=== PATIENT | female | born 1990 | race American Indian/Alaskan Native ===

== ENCOUNTER 2017-09-05 11:05 | Inpatient (IN) | payer OTHER ==
[~2017-09-05 11:05] MED LIST: NACL 0.9% IR ONE; WATER FOR IRRIG STERILE IR ONE
[2017-09-05] MEDS ORDERED: XYLOCAINE 2% INFILTRATI ONE ×2 (11:41→17:27)
[2017-09-05] MEDS ORDERED: ZOFRAN IV PRN (11:41)
[2017-09-05] MEDS ORDERED: MINERAL OIL PO PRN (11:41)
[2017-09-05] MEDS ORDERED: SUBLIMAZE IV PRN (11:41)
[2017-09-05] MEDS ORDERED: ePHEDrine SULFATE IV PRN ×2 (11:41→15:08)
[2017-09-05] MEDS ORDERED: POLYCILLIN/NS 2 GM/100 ML 2 GM/100 ML BAG IV ONE (11:41)
[2017-09-05] MEDS ORDERED: BRETHINE SUB-Q PRN (11:41)
--- NOTE | 2017-09-05 11:49 | History and Physical Report ---
History of Present Illness Date of examination: 09/05/17 Chief complaint: SROM @ 0930, clear fluid History of present illness: EDC Confirmation: 09/04/2017 Past History : 1 Past Medical History: Negative Past Medical History Past Surgical History: Reviewed history and no changes required: ruptured appendix age 9 with appendectomy and subsequent infection Past Medical History Anesthesia Complications: negative Anemia: negative Autoimmune Disorder: negative Bleeding Disorder: negative Blood Transfusions: negative Breast Disease: negative Diabetes: negative Heart Disease: negative Hypertension: negative Hepatitis/Liver Disease: negative Kidney Disease/UTI: negative Neurologic/Epilepsy/Migraines: negative Phlebitis/Varicosities: negative Psychiatric: negative Pulmonary Disease/Asthma: negative Thyroid Disease: negative Hospitalizations: negative 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 of genital herpes: no Partner hx. of genital herpes: no Varicella/Chicken Pox Status: Unknown TB Risk: no Genetic History Congenital Heart Defect: Mom: no Dad: no Sapphire Disease: Mom: no Dad: no Thalassemia Mom: no Dad: no Neural Tube Defect Mom: no Dad: no Down's Syndrome Mom: no Dad: no Twan-Sachs Mom: no Dad: no Sickle Cell Disease/Trait Mom: no Dad: no Hemophilia Mom: no Dad: no Muscular Dystrophy Mom: no Dad: no Cystic Fibrosis Mom: no Dad: no Vicki Chorea Mom: no Dad: no Mental Retardation Mom: no Dad: no Fragile X Mom: no Dad: no Other Genetic/Chromosomal Disorder Mom: no Dad: no Child w/other defect Mom: no Dad: no Enviromental Exposures Xray Exposure: no Medication, drug, or alcohol use since LMP: no Chemical/Other Exposure: no Exposure to Cat Liter: no Hx of Parvovirus (Fifth Disease): no Active Medications (reviewed today): None Current Allergies (reviewed today): No known allergies Past History Past Medical History: other (see HPI) Past Surgical History: other (see HPI) LOADING DOCK HAND History: other (see HPI) Family/Genetic History: other (see HPI) - Obstetrical History Expected Date of Delivery: 09/04/17 Actual Gestation: 40 Week(s) 1 Day(s) : 1 Para: 0 Hx # Term Pregnancies: 0 Number of Pregnancies: 0 Spontaneous Abortions: 0 Induced : 0 Number of Living Children: 0 Medications and Allergies Allergies Allergy/AdvReac Type Severity Reaction Status Date / Time No Known Allergies Allergy Unverified 09/05/17 11:07 Review of Systems All systems: negative - Vital Signs Vital signs: Vital Signs Temp Resp 98.5 F 18 09/05/17 11:23 09/05/17 11:23 Temp Pulse Resp BP Pulse Ox 98.5 F 100 H 18 112/82 09/05/17 11:23 09/05/17 11:27 09/05/17 11:23 09/05/17 11:27 - Physical Exam Breasts: Positive: normal Cardiovascular: Regular rate Lungs: Positive: Clear to auscultation, Normal air movement Abdomen: Positive: normal appearance, soft Genitourinary (Female): Positive: normal external genitalia, normal perenium Vulva: both: normal Vagina: Positive: normal moisture (SROM - clear amniotic fluid) Uterus: Positive: normal size, normal contour Anus/Rectum: Positive: normal perianal skin Extremities: Positive: normal Deep Tendon Reflex Grade: Normal +2 - Obstetrical FHR: auscultation normal Uterine Contraction Monitor Mode: External Cervical Dilatation: 3.5 Uterine Contraction Pattern: Regular Uterine Tone Measurement Phase: Contraction Uterine Contraction Intensity: Mild Results All other labs normal. Assessment and Plan 27y/o @ 40+1 weeks, arrived with c/o SROM @ 0930. GBS +. Admission orders in EMR. Epidural PRN. - Patient Problems (1) 40 weeks gestation of Current Visit: Yes Status: Acute (2) SROM (spontaneous rupture of membranes) Current Visit: Yes Status: Acute (3) GBS (group B Streptococcus carrier), +RV culture, currently Current Visit: Yes Status: Acute
[2017-09-05] MEDS ORDERED: PITOCin/NS 20 UNIT/1000ML DRIP 20 UNITS/1,000 ML BAG IV SCH ×2 (12:00→22:00)
[2017-09-05] MEDS ORDERED: LACTATED RINGERS 1,000 ML IV SCH ×2 (12:00→22:00)
[2017-09-05] MEDS ORDERED: PITOCin/NS 30 UNIT/500ML 30 UNITS/500 ML BAG IV SCH ×2 (12:00)
[2017-09-05 12:54] LABS: Hemoglobin 11.4 gm/dl (10.1-14.3); Mean Corpuscular HGB Conc 35 % (30-34); Mean Corpuscular Hemoglobin 28 pg (28-32); Mean Corpuscular Volume 81 fl (79-97); Platelet Count 264 K/mm3 (140-440); Red Blood Count 4.08 M/mm3 (3.65-5.03); Red Cell Distribution Width 14.6 % (13.2-15.2)
--- NOTE | 2017-09-05 13:58 | Progress Note ---
Assessment and Plan no change in cervix since admission, ctx have spaced out with hydration. Will start pitocin augmentation. Epidural PRN. - Patient Problems (1) 40 weeks gestation of Current Visit: Yes Status: Acute (2) SROM (spontaneous rupture of membranes) Current Visit: Yes Status: Acute (3) GBS (group B Streptococcus carrier), +RV culture, currently Current Visit: Yes Status: Acute Subjective - Subjective Date of service: 09/05/17 Principal diagnosis: IUP @ 40+1; SROM 0930 Interval history: EDC Confirmation: 09/04/2017 Past History : 1 Past Medical History: Negative Past Medical History Past Surgical History: Reviewed history and no changes required: ruptured appendix age 9 with appendectomy and subsequent infection Past Medical History Anesthesia Complications: negative Anemia: negative Autoimmune Disorder: negative Bleeding Disorder: negative Blood Transfusions: negative Breast Disease: negative Diabetes: negative Heart Disease: negative Hypertension: negative Hepatitis/Liver Disease: negative Kidney Disease/UTI: negative Neurologic/Epilepsy/Migraines: negative Phlebitis/Varicosities: negative Psychiatric: negative Pulmonary Disease/Asthma: negative Thyroid Disease: negative Hospitalizations: negative 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 of genital herpes: no Partner hx. of genital herpes: no Varicella/Chicken Pox Status: Unknown TB Risk: no Genetic History Congenital Heart Defect: Mom: no Dad: no Sapphire Disease: Mom: no Dad: no Thalassemia Mom: no Dad: no Neural Tube Defect Mom: no Dad: no Down's Syndrome Mom: no Dad: no Twan-Sachs Mom: no Dad: no Sickle Cell Disease/Trait Mom: no Dad: no Hemophilia Mom: no Dad: no Muscular Dystrophy Mom: no Dad: no Cystic Fibrosis Mom: no Dad: no Vicki Chorea Mom: no Dad: no Mental Retardation Mom: no Dad: no Fragile X Mom: no Dad: no Other Genetic/Chromosomal Disorder Mom: no Dad: no Child w/other defect Mom: no Dad: no Enviromental Exposures Xray Exposure: no Medication, drug, or alcohol use since LMP: no Chemical/Other Exposure: no Exposure to Cat Liter: no Hx of Parvovirus (Fifth Disease): no Active Medications (reviewed today): None Current Allergies (reviewed today): No known allergies Patient reports: loss of fluid, movement normal, contractions, no vaginal bleeding Objective - Vital Signs Vital Signs: Vital Signs - 12hr 09/05/17 09/05/17 09/05/17 11:23 11:27 12:21 Temperature 98.5 F Pulse Rate 100 H 82 Respiratory 18 Rate Blood Pressure 112/82 130/85 O2 Sat by Pulse Oximetry 09/05/17 09/05/17 09/05/17 12:51 12:52 12:56 Temperature Pulse Rate 85 98 H 101 H Respiratory Rate Blood Pressure O2 Sat by Pulse 96 96 97 Oximetry 09/05/17 09/05/17 09/05/17 12:59 13:00 13:01 Temperature 97.8 F Pulse Rate 91 H 83 Respiratory 18 Rate Blood Pressure 128/56 O2 Sat by Pulse 94 96 Oximetry 09/05/17 09/05/17 09/05/17 13:06 13:11 13:16 Temperature Pulse Rate 97 H 82 95 H Respiratory Rate Blood Pressure O2 Sat by Pulse 97 94 94 Oximetry 09/05/17 09/05/17 09/05/17 13:21 13:25 13:26 Temperature Pulse Rate 92 H 86 92 H Respiratory Rate Blood Pressure O2 Sat by Pulse 96 96 94 Oximetry 09/05/17 09/05/17 09/05/17 13:31 13:32 13:36 Temperature Pulse Rate 86 99 H 90 Respiratory Rate Blood Pressure O2 Sat by Pulse 98 96 96 Oximetry 09/05/17 09/05/17 09/05/17 13:38 13:41 13:43 Temperature Pulse Rate 97 H 87 93 H Respiratory Rate Blood Pressure O2 Sat by Pulse 96 97 96 Oximetry 09/05/17 09/05/17 09/05/17 13:46 13:50 13:51 Temperature Pulse Rate 94 H 85 81 Respiratory Rate Blood Pressure O2 Sat by Pulse 94 95 98 Oximetry 09/05/17 13:56 Temperature Pulse Rate 92 H Respiratory Rate Blood Pressure O2 Sat by Pulse 99 Oximetry - Exam Breasts: normal Cardiovascular: Regular rate Lungs: Clear to auscultation, Normal air movement Abdomen: Present: normal appearance, soft Vulva: both: normal Uterus: Present: normal FHR: category 1 Uterine Contraction Monitor Mode: External Cervical Dilatation: 3.5 (vertex) Cervical Effacement Percentage: 80 station: -2 Uterine Contraction Frequency (min): 3-5 Uterine Contraction Duration: 60 Uterine Contraction Pattern: Regular Uterine Tone Measurement Phase: Contraction Uterine Contraction Intensity: Mild Extremities: normal Deep Tendon Reflex Grade: Normal +2 - Labs Labs: Abnormal Labs 09/05/17 12:20 MCHC 35 H Laboratory Results - last 24 hr 09/05/17 09/05/17 12:20 12:20 WBC 10.2 RBC 4.08 Hgb 11.4 Hct 33.0 MCV 81 MCH 28 MCHC 35 H RDW 14.6 Plt Count 264 Blood Type A POSITIVE
[2017-09-05] MEDS ORDERED: NARCAN 2 MG/2 ML IV PRN (15:08)
--- NOTE | 2017-09-05 15:08 | Anesthesia Consultation ---
Anesthesia Consult and Med Hx Date of service: 09/05/17 - Airway Anesthetic Teeth Evaluation: Good ROM Head & Neck: Adequate Mental/Hyoid Distance: Adequate Mallampati Class: Class II Intubation Access Assessment: Good - Pulmonary Exam CTA: Yes - Cardiac Exam Cardiac Exam: No Murmur - Pre-Operative Health Status ASA Pre-Surgery Classification: ASA2 Proposed Anesthetic Plan: Epidural - Pulmonary Hx Asthma: No COPD: No Hx Pneumonia: No - Cardiovascular System Hx Hypertension: No - Central Nervous System Hx Seizures: No Hx Psychiatric Problems: No - Endocrine Hx Renal Disease: No Hx End Stage Renal Disease: No Hx Hypothyroidism: No Hx Hyperthyroidism: No - Hematic Hx Anemia: No Hx Sickle Cell Disease: No - Other Systems Hx Alcohol Use: No
[2017-09-05] MEDS ORDERED: fentaNYL-BUPIV 2 MCG/ML-0.125% 200 MCG/100 ML BAG EPIDURAL SCH (16:00)
[2017-09-05] MEDS: AMPICILLIN/NS 1 GM/50 ML 1 GM/50 ML BAG IV SCH ×2 (16:36→21:17)
--- NOTE | 2017-09-05 16:56 | Progress Note ---
Assessment and Plan patient s/p epidural placement, not totally comfortable but does have a reduction in pain. IUPC placed without difficulty. Will continue titrating pitocin for adequate labor. second dose of ampicillin infusing for +GBS. All questions addressed, verbalized understanding. - Patient Problems (1) 40 weeks gestation of Current Visit: Yes Status: Acute (2) SROM (spontaneous rupture of membranes) Current Visit: Yes Status: Acute (3) GBS (group B Streptococcus carrier), +RV culture, currently Current Visit: Yes Status: Acute Subjective - Subjective Date of service: 09/05/17 Principal diagnosis: IUP @ 40+1; SROM 0930 Interval history: EDC Confirmation: 09/04/2017 Past History : 1 Past Medical History: Negative Past Medical History Past Surgical History: Reviewed history and no changes required: ruptured appendix age 9 with appendectomy and subsequent infection Past Medical History Anesthesia Complications: negative Anemia: negative Autoimmune Disorder: negative Bleeding Disorder: negative Blood Transfusions: negative Breast Disease: negative Diabetes: negative Heart Disease: negative Hypertension: negative Hepatitis/Liver Disease: negative Kidney Disease/UTI: negative Neurologic/Epilepsy/Migraines: negative Phlebitis/Varicosities: negative Psychiatric: negative Pulmonary Disease/Asthma: negative Thyroid Disease: negative Hospitalizations: negative 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 of genital herpes: no Partner hx. of genital herpes: no Varicella/Chicken Pox Status: Unknown TB Risk: no Genetic History Congenital Heart Defect: Mom: no Dad: no [place]apphire Disease: Mom: no Dad: no Thalassemia Mom: no Dad: no Neural Tube Defect Mom: no Dad: no Down's Syndrome Mom: no Dad: no Twan-Sachs Mom: no Dad: no Sickle Cell Disease/Trait Mom: no Dad: no Hemophilia Mom: no Dad: no Muscular Dystrophy Mom: no Dad: no Cystic Fibrosis Mom: no Dad: no Vicki Chorea Mom: no Dad: no Mental Retardation Mom: no Dad: no Fragile X Mom: no Dad: no Other Genetic/Chromosomal Disorder Mom: no Dad: no Child w/other defect Mom: no Dad: no Enviromental Exposures Xray Exposure: no Medication, drug, or alcohol use since LMP: no Chemical/Other Exposure: no Exposure to Cat Liter: no Hx of Parvovirus (Fifth Disease): no Active Medications (reviewed today): None Current Allergies (reviewed today): No known allergies Patient reports: new complaints (patient s/p epidural, still feeling ctx), loss of fluid, contractions, no vaginal bleeding Objective - Vital Signs Vital Signs: Vital Signs - 12hr 09/05/17 09/05/17 09/05/17 11:23 11:27 12:21 Temperature 98.5 F Pulse Rate 100 H 82 Respiratory 18 Rate Blood Pressure 112/82 130/85 O2 Sat by Pulse Oximetry 09/05/17 09/05/17 09/05/17 12:51 12:52 12:56 Temperature Pulse Rate 85 98 H 101 H Respiratory Rate Blood Pressure O2 Sat by Pulse 96 96 97 Oximetry 09/05/17 09/05/17 09/05/17 12:59 13:00 13:01 Temperature 97.8 F Pulse Rate 91 H 83 Respiratory 18 Rate Blood Pressure 128/56 O2 Sat by Pulse 94 96 Oximetry 09/05/17 09/05/17 09/05/17 13:06 13:11 13:16 Temperature Pulse Rate 97 H 82 95 H Respiratory Rate Blood Pressure O2 Sat by Pulse 97 94 94 Oximetry 09/05/17 09/05/17 09/05/17 13:21 13:25 13:26 Temperature Pulse Rate 92 H 86 92 H Respiratory Rate Blood Pressure O2 Sat by Pulse 96 96 94 Oximetry 09/05/17 09/05/17 09/05/17 13:31 13:32 13:36 Temperature Pulse Rate 86 99 H 90 Respiratory Rate Blood Pressure O2 Sat by Pulse 98 96 96 Oximetry 09/05/17 09/05/17 09/05/17 13:38 13:41 13:43 Temperature Pulse Rate 97 H 87 93 H Respiratory Rate Blood Pressure O2 Sat by Pulse 96 97 96 Oximetry 09/05/17 09/05/17 09/05/17 13:46 13:50 13:51 Temperature Pulse Rate 94 H 85 81 Respiratory Rate Blood Pressure O2 Sat by Pulse 94 95 98 Oximetry 09/05/17 09/05/17 09/05/17 13:56 14:01 14:05 Temperature Pulse Rate 92 H 93 H 81 Respiratory Rate Blood Pressure O2 Sat by Pulse 99 97 96 Oximetry 09/05/17 09/05/17 09/05/17 14:06 14:11 14:16 Temperature Pulse Rate 85 101 H 89 Respiratory Rate Blood Pressure O2 Sat by Pulse 98 97 99 Oximetry 09/05/17 09/05/17 09/05/17 14:21 14:26 14:31 Temperature Pulse Rate 79 83 96 H Respiratory Rate Blood Pressure O2 Sat by Pulse 97 96 98 Oximetry 09/05/17 09/05/17 09/05/17 14:33 14:36 14:41 Temperature Pulse Rate 88 87 89 Respiratory Rate Blood Pressure O2 Sat by Pulse 96 98 95 Oximetry 09/05/17 09/05/17 09/05/17 14:46 14:48 14:56 Temperature Pulse Rate 88 70 Respiratory Rate Blood Pressure O2 Sat by Pulse 96 82 L 87 Oximetry 09/05/17 09/05/17 09/05/17 15:01 15:55 16:00 Temperature Pulse Rate 92 H 70 Respiratory Rate Blood Pressure O2 Sat by Pulse 92 71 L 78 L Oximetry 09/05/17 09/05/17 09/05/17 16:01 16:04 16:06 Temperature Pulse Rate 110 H 88 88 Respiratory Rate Blood Pressure 129/70 129/62 O2 Sat by Pulse 96 Oximetry 09/05/17 09/05/17 09/05/17 16:11 16:16 16:21 Temperature Pulse Rate 86 92 H 92 H Respiratory Rate Blood Pressure 109/68 O2 Sat by Pulse 100 99 99 Oximetry 09/05/17 09/05/17 09/05/17 16:26 16:31 16:33 Temperature Pulse Rate 88 95 H 108 H Respiratory Rate Blood Pressure 111/69 101/57 O2 Sat by Pulse 99 100 Oximetry 09/05/17 09/05/17 16:36 16:47 Temperature Pulse Rate 89 88 Respiratory Rate Blood Pressure 104/59 O2 Sat by Pulse 62 L Oximetry - Exam Cardiovascular: Regular rate Lungs: Clear to auscultation, Normal air movement Abdomen: Present: normal appearance, soft Vulva: both: normal Uterus: Present: normal FHR: category 1 Uterine Contraction Monitor Mode: Internal Cervical Dilatation: 6 (small amount of clear fluid noted) Cervical Effacement Percentage: 100 station: -1 Uterine Contraction Frequency (min): 2 Uterine Contraction Duration: 60 Uterine Contraction Pattern: Regular Uterine Tone Measurement Phase: Contraction Uterine Contraction Intensity: Moderate Extremities: normal Deep Tendon Reflex Grade: Normal +2 - Labs Labs: Abnormal Labs 09/05/17 12:20 MCHC 35 H Laboratory Results - last 24 hr 09/05/17 09/05/17 09/05/17 12:20 12:20 12:20 WBC 10.2 RBC 4.08 Hgb 11.4 Hct 33.0 MCV 81 MCH 28 MCHC 35 H RDW 14.6 Plt Count 264 RPR Nonreactive Blood Type A POSITIVE Antibody Screen Negative
--- NOTE | 2017-09-05 19:22 | Progress Note ---
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 Subjective - Subjective Date of service: 09/05/17 (comfortable) Principal diagnosis: IUP @ 40+1; SROM 0930 Patient reports: new complaints (patient s/p epidural, still feeling ctx), loss of fluid, contractions, no vaginal bleeding Objective - Vital Signs Vital Signs: Vital Signs - 12hr 09/05/17 09/05/17 09/05/17 11:23 11:27 12:21 Temperature 98.5 F Pulse Rate 100 H 82 Respiratory 18 Rate Blood Pressure 112/82 130/85 O2 Sat by Pulse Oximetry 09/05/17 09/05/17 09/05/17 12:51 12:52 12:56 Temperature Pulse Rate 85 98 H 101 H Respiratory Rate Blood Pressure O2 Sat by Pulse 96 96 97 Oximetry 09/05/17 09/05/17 09/05/17 12:59 13:00 13:01 Temperature 97.8 F Pulse Rate 91 H 83 Respiratory 18 Rate Blood Pressure 128/56 O2 Sat by Pulse 94 96 Oximetry 09/05/17 09/05/17 09/05/17 13:06 13:11 13:16 Temperature Pulse Rate 97 H 82 95 H Respiratory Rate Blood Pressure O2 Sat by Pulse 97 94 94 Oximetry 09/05/17 09/05/17 09/05/17 13:21 13:25 13:26 Temperature Pulse Rate 92 H 86 92 H Respiratory Rate Blood Pressure O2 Sat by Pulse 96 96 94 Oximetry 09/05/17 09/05/17 09/05/17 13:31 13:32 13:36 Temperature Pulse Rate 86 99 H 90 Respiratory Rate Blood Pressure O2 Sat by Pulse 98 96 96 Oximetry 09/05/17 09/05/17 09/05/17 13:38 13:41 13:43 Temperature Pulse Rate 97 H 87 93 H Respiratory Rate Blood Pressure O2 Sat by Pulse 96 97 96 Oximetry 09/05/17 09/05/17 09/05/17 13:46 13:50 13:51 Temperature Pulse Rate 94 H 85 81 Respiratory Rate Blood Pressure O2 Sat by Pulse 94 95 98 Oximetry 09/05/17 09/05/17 09/05/17 13:56 14:01 14:05 Temperature Pulse Rate 92 H 93 H 81 Respiratory Rate Blood Pressure O2 Sat by Pulse 99 97 96 Oximetry 09/05/17 09/05/17 09/05/17 14:06 14:11 14:16 Temperature Pulse Rate 85 101 H 89 Respiratory Rate Blood Pressure O2 Sat by Pulse 98 97 99 Oximetry 09/05/17 09/05/17 09/05/17 14:21 14:26 14:31 Temperature Pulse Rate 79 83 96 H Respiratory Rate Blood Pressure O2 Sat by Pulse 97 96 98 Oximetry 09/05/17 09/05/17 09/05/17 14:33 14:36 14:41 Temperature Pulse Rate 88 87 89 Respiratory Rate Blood Pressure O2 Sat by Pulse 96 98 95 Oximetry 09/05/17 09/05/17 09/05/17 14:46 14:48 14:56 Temperature Pulse Rate 88 70 Respiratory Rate Blood Pressure O2 Sat by Pulse 96 82 L 87 Oximetry 09/05/17 09/05/17 09/05/17 15:01 15:55 16:00 Temperature Pulse Rate 92 H 70 Respiratory Rate Blood Pressure O2 Sat by Pulse 92 71 L 78 L Oximetry 09/05/17 09/05/17 09/05/17 16:01 16:04 16:06 Temperature Pulse Rate 110 H 88 88 Respiratory Rate Blood Pressure 129/70 129/62 O2 Sat by Pulse 96 Oximetry 09/05/17 09/05/17 09/05/17 16:11 16:16 16:21 Temperature Pulse Rate 86 92 H 92 H Respiratory Rate Blood Pressure 109/68 O2 Sat by Pulse 100 99 99 Oximetry 09/05/17 09/05/17 09/05/17 16:26 16:31 16:33 Temperature Pulse Rate 88 95 H 108 H Respiratory Rate Blood Pressure 111/69 101/57 O2 Sat by Pulse 99 100 Oximetry 09/05/17 09/05/17 09/05/17 16:36 16:47 16:54 Temperature Pulse Rate 89 88 Respiratory Rate Blood Pressure 104/59 O2 Sat by Pulse 62 L 93 Oximetry 09/05/17 09/05/17 09/05/17 16:58 16:59 17:01 Temperature Pulse Rate 77 92 H Respiratory Rate Blood Pressure 105/59 O2 Sat by Pulse 80 L 78 L Oximetry 09/05/17 09/05/17 09/05/17 17:02 17:04 17:10 Temperature 98.1 F Pulse Rate Respiratory 16 Rate Blood Pressure O2 Sat by Pulse 90 82 L Oximetry 09/05/17 09/05/17 09/05/17 17:16 17:17 17:32 Temperature Pulse Rate 85 92 H Respiratory Rate Blood Pressure 106/52 123/58 O2 Sat by Pulse 82 L Oximetry 09/05/17 09/05/17 09/05/17 17:47 17:48 17:52 Temperature Pulse Rate 71 94 H 83 Respiratory Rate Blood Pressure 97/55 O2 Sat by Pulse 84 100 Oximetry 09/05/17 09/05/17 09/05/17 17:57 18:01 18:02 Temperature Pulse Rate 80 84 104 H Respiratory Rate Blood Pressure 108/65 O2 Sat by Pulse 100 92 Oximetry 09/05/17 09/05/17 09/05/17 18:07 18:12 18:16 Temperature Pulse Rate 86 90 95 H Respiratory Rate Blood Pressure O2 Sat by Pulse 76 L 100 87 Oximetry 09/05/17 09/05/17 09/05/17 18:17 18:22 18:27 Temperature Pulse Rate 88 80 93 H Respiratory Rate Blood Pressure 121/72 O2 Sat by Pulse 100 98 96 Oximetry 09/05/17 09/05/17 09/05/17 18:28 18:32 18:33 Temperature Pulse Rate 99 H 91 H 82 Respiratory Rate Blood Pressure 128/76 O2 Sat by Pulse 84 100 Oximetry 09/05/17 09/05/17 09/05/17 18:34 18:37 18:40 Temperature Pulse Rate 102 H 90 90 Respiratory Rate Blood Pressure O2 Sat by Pulse 96 98 88 Oximetry 09/05/17 09/05/17 09/05/17 18:42 18:47 18:52 Temperature Pulse Rate 88 86 86 Respiratory Rate Blood Pressure 121/83 O2 Sat by Pulse 100 94 96 Oximetry 09/05/17 09/05/17 09/05/17 18:57 18:58 19:02 Temperature Pulse Rate 84 82 81 Respiratory Rate Blood Pressure O2 Sat by Pulse 100 95 98 Oximetry 09/05/17 09/05/17 09/05/17 19:03 19:04 19:07 Temperature Pulse Rate 95 H 94 H Respiratory Rate Blood Pressure 116/81 O2 Sat by Pulse 95 94 Oximetry 09/05/17 09/05/17 09/05/17 19:13 19:17 19:19 Temperature Pulse Rate 97 H 89 84 Respiratory Rate Blood Pressure 124/78 O2 Sat by Pulse 89 89 92 Oximetry 09/05/17 19:22 Temperature Pulse Rate 87 Respiratory Rate Blood Pressure O2 Sat by Pulse 63 L Oximetry - Exam Breasts: deferred Cardiovascular: Regular rate Lungs: Normal air movement Abdomen: Present: normal appearance, soft. Absent: distention, tenderness Uterus: Present: normal FHR: auscultation normal, category 1 Uterine Contraction Monitor Mode: Internal Cervical Dilatation: 9 (ISE applied) Cervical Effacement Percentage: 100 (some caput) station: 0 Uterine Contraction Pattern: Regular Uterine Tone Measurement Phase: Resting Uterine Contraction Intensity: Moderate Extremities: normal Deep Tendon Reflex Grade: Normal +2 - Labs Labs: Abnormal Labs 09/05/17 12:20 MCHC 35 H Laboratory Results - last 24 hr 09/05/17 09/05/17 09/05/17 12:20 12:20 12:20 WBC 10.2 RBC 4.08 Hgb 11.4 Hct 33.0 MCV 81 MCH 28 MCHC 35 H RDW 14.6 Plt Count 264 RPR Nonreactive Blood Type A POSITIVE Antibody Screen Negative
[2017-09-05] MEDS ORDERED: BICITRA PO ONE (21:57)
[2017-09-05] MEDS ORDERED: PEPCID IV ONE (21:57)
[2017-09-05] MEDS ORDERED: REGLAN IV ONE (21:57)
[2017-09-05] MEDS ORDERED: ANCEF/STERILE WATER 2 GM/20 ML 2 GM/20 ML SYRINGE IV NR (22:00)
--- NOTE | 2017-09-05 22:12 | Progress Note ---
Assessment and Plan Despite several position chges fetus remains in persistent OP presentation. Attempted to push several times fetus would drop FHTs to the 90s and remain there until we stopped pushing. Explained need for operative delivery to pt and family Risks to include but not limited to surrounding organ damage, bleeding, need for section with future pregnancies. Dr.Youngblood ball. Orders in EMR. Consents signed. Subjective - Subjective Date of service: 09/05/17 (Deespite position chges and several attempts to push Persistent OP presentation) Principal diagnosis: IUP @ 40+1; SROM 0930 Patient reports: new complaints (patient s/p epidural, still feeling ctx), loss of fluid, contractions, no vaginal bleeding Objective - Vital Signs Vital Signs: Vital Signs - 12hr 09/05/17 09/05/17 09/05/17 11:23 11:27 12:21 Temperature 98.5 F Pulse Rate 100 H 82 Respiratory 18 Rate Blood Pressure 112/82 130/85 Blood Pressure [Left] O2 Sat by Pulse Oximetry 09/05/17 09/05/17 09/05/17 12:51 12:52 12:56 Temperature Pulse Rate 85 98 H 101 H Respiratory Rate Blood Pressure Blood Pressure [Left] O2 Sat by Pulse 96 96 97 Oximetry 09/05/17 09/05/17 09/05/17 12:59 13:00 13:01 Temperature 97.8 F Pulse Rate 91 H 83 Respiratory 18 Rate Blood Pressure 128/56 Blood Pressure [Left] O2 Sat by Pulse 94 96 Oximetry 09/05/17 09/05/17 09/05/17 13:06 13:11 13:16 Temperature Pulse Rate 97 H 82 95 H Respiratory Rate Blood Pressure Blood Pressure [Left] O2 Sat by Pulse 97 94 94 Oximetry 09/05/17 09/05/17 09/05/17 13:21 13:25 13:26 Temperature Pulse Rate 92 H 86 92 H Respiratory Rate Blood Pressure Blood Pressure [Left] O2 Sat by Pulse 96 96 94 Oximetry 09/05/17 09/05/17 09/05/17 13:31 13:32 13:36 Temperature Pulse Rate 86 99 H 90 Respiratory Rate Blood Pressure Blood Pressure [Left] O2 Sat by Pulse 98 96 96 Oximetry 09/05/17 09/05/17 09/05/17 13:38 13:41 13:43 Temperature Pulse Rate 97 H 87 93 H Respiratory Rate Blood Pressure Blood Pressure [Left] O2 Sat by Pulse 96 97 96 Oximetry 09/05/17 09/05/17 09/05/17 13:46 13:50 13:51 Temperature Pulse Rate 94 H 85 81 Respiratory Rate Blood Pressure Blood Pressure [Left] O2 Sat by Pulse 94 95 98 Oximetry 09/05/17 09/05/17 09/05/17 13:56 14:01 14:05 Temperature Pulse Rate 92 H 93 H 81 Respiratory Rate Blood Pressure Blood Pressure [Left] O2 Sat by Pulse 99 97 96 Oximetry 09/05/17 09/05/17 09/05/17 14:06 14:11 14:16 Temperature Pulse Rate 85 101 H 89 Respiratory Rate Blood Pressure Blood Pressure [Left] O2 Sat by Pulse 98 97 99 Oximetry 09/05/17 09/05/17 09/05/17 14:21 14:26 14:31 Temperature Pulse Rate 79 83 96 H Respiratory Rate Blood Pressure Blood Pressure [Left] O2 Sat by Pulse 97 96 98 Oximetry 09/05/17 09/05/17 09/05/17 14:33 14:36 14:41 Temperature Pulse Rate 88 87 89 Respiratory Rate Blood Pressure Blood Pressure [Left] O2 Sat by Pulse 96 98 95 Oximetry 09/05/17 09/05/17 09/05/17 14:46 14:48 14:56 Temperature Pulse Rate 88 70 Respiratory Rate Blood Pressure Blood Pressure [Left] O2 Sat by Pulse 96 82 L 87 Oximetry 09/05/17 09/05/17 09/05/17 15:01 15:55 16:00 Temperature Pulse Rate 92 H 70 Respiratory Rate Blood Pressure Blood Pressure [Left] O2 Sat by Pulse 92 71 L 78 L Oximetry 09/05/17 09/05/17 09/05/17 16:01 16:04 16:06 Temperature Pulse Rate 110 H 88 88 Respiratory Rate Blood Pressure 129/70 129/62 Blood Pressure [Left] O2 Sat by Pulse 96 Oximetry 09/05/17 09/05/17 09/05/17 16:11 16:16 16:21 Temperature Pulse Rate 86 92 H 92 H Respiratory Rate Blood Pressure 109/68 Blood Pressure [Left] O2 Sat by Pulse 100 99 99 Oximetry 09/05/17 09/05/17 09/05/17 16:26 16:31 16:33 Temperature Pulse Rate 88 95 H 108 H Respiratory Rate Blood Pressure 111/69 101/57 Blood Pressure [Left] O2 Sat by Pulse 99 100 Oximetry 09/05/17 09/05/17 09/05/17 16:36 16:47 16:54 Temperature Pulse Rate 89 88 Respiratory Rate Blood Pressure 104/59 Blood Pressure [Left] O2 Sat by Pulse 62 L 93 Oximetry 09/05/17 09/05/17 09/05/17 16:58 16:59 17:01 Temperature Pulse Rate 77 92 H Respiratory Rate Blood Pressure 105/59 Blood Pressure [Left] O2 Sat by Pulse 80 L 78 L Oximetry 09/05/17 09/05/17 09/05/17 17:02 17:04 17:10 Temperature 98.1 F Pulse Rate Respiratory 16 Rate Blood Pressure Blood Pressure [Left] O2 Sat by Pulse 90 82 L Oximetry 09/05/17 09/05/17 09/05/17 17:16 17:17 17:32 Temperature Pulse Rate 85 92 H Respiratory Rate Blood Pressure 106/52 123/58 Blood Pressure [Left] O2 Sat by Pulse 82 L Oximetry 09/05/17 09/05/17 09/05/17 17:47 17:48 17:52 Temperature Pulse Rate 71 94 H 83 Respiratory Rate Blood Pressure 97/55 Blood Pressure [Left] O2 Sat by Pulse 84 100 Oximetry 09/05/17 09/05/17 09/05/17 17:57 18:01 18:02 Temperature Pulse Rate 80 84 104 H Respiratory Rate Blood Pressure 108/65 Blood Pressure [Left] O2 Sat by Pulse 100 92 Oximetry 09/05/17 09/05/17 09/05/17 18:07 18:12 18:16 Temperature Pulse Rate 86 90 95 H Respiratory Rate Blood Pressure Blood Pressure [Left] O2 Sat by Pulse 76 L 100 87 Oximetry 09/05/17 09/05/17 09/05/17 18:17 18:22 18:27 Temperature Pulse Rate 88 80 93 H Respiratory Rate Blood Pressure 121/72 Blood Pressure [Left] O2 Sat by Pulse 100 98 96 Oximetry 09/05/17 09/05/17 09/05/17 18:28 18:32 18:33 Temperature Pulse Rate 99 H 91 H 82 Respiratory Rate Blood Pressure 128/76 Blood Pressure [Left] O2 Sat by Pulse 84 100 Oximetry 09/05/17 09/05/17 09/05/17 18:34 18:37 18:40 Temperature Pulse Rate 102 H 90 90 Respiratory Rate Blood Pressure Blood Pressure [Left] O2 Sat by Pulse 96 98 88 Oximetry 09/05/17 09/05/17 09/05/17 18:42 18:47 18:52 Temperature Pulse Rate 88 86 86 Respiratory Rate Blood Pressure 121/83 Blood Pressure [Left] O2 Sat by Pulse 100 94 96 Oximetry 09/05/17 09/05/17 09/05/17 18:57 18:58 19:02 Temperature Pulse Rate 84 82 81 Respiratory Rate Blood Pressure Blood Pressure [Left] O2 Sat by Pulse 100 95 98 Oximetry 09/05/17 09/05/17 09/05/17 19:03 19:04 19:07 Temperature Pulse Rate 95 H 94 H Respiratory Rate Blood Pressure 116/81 Blood Pressure [Left] O2 Sat by Pulse 95 94 Oximetry 09/05/17 09/05/17 09/05/17 19:13 19:17 19:19 Temperature Pulse Rate 97 H 89 84 Respiratory Rate Blood Pressure 124/78 Blood Pressure [Left] O2 Sat by Pulse 89 89 92 Oximetry 09/05/17 09/05/17 09/05/17 19:22 19:25 19:26 Temperature 97.6 F Pulse Rate 87 80 76 Respiratory 20 Rate Blood Pressure Blood Pressure 128/77 [Left] O2 Sat by Pulse 63 L 96 Oximetry 09/05/17 09/05/17 09/05/17 19:27 19:29 19:31 Temperature Pulse Rate 76 76 79 Respiratory Rate Blood Pressure 122/71 128/77 Blood Pressure [Left] O2 Sat by Pulse 99 Oximetry 09/05/17 09/05/17 09/05/17 19:32 19:35 19:38 Temperature Pulse Rate 77 88 83 Respiratory Rate Blood Pressure Blood Pressure [Left] O2 Sat by Pulse 99 91 100 Oximetry 09/05/17 09/05/17 09/05/17 19:41 19:42 19:47 Temperature Pulse Rate 79 78 88 Respiratory Rate Blood Pressure Blood Pressure [Left] O2 Sat by Pulse 95 99 97 Oximetry 09/05/17 09/05/17 09/05/17 19:48 19:52 19:57 Temperature Pulse Rate 85 81 91 H Respiratory Rate Blood Pressure 136/95 Blood Pressure [Left] O2 Sat by Pulse 94 100 95 Oximetry 09/05/17 09/05/1709/05/18 19:58 20:02 20:03 Temperature Pulse Rate 94 H 82 95 H Respiratory Rate Blood Pressure 127/72 Blood Pressure [Left] O2 Sat by Pulse 99 88 Oximetry 09/05/17 09/05/17 09/05/17 20:08 20:13 20:18 Temperature Pulse Rate 77 80 94 H Respiratory Rate Blood Pressure 129/68 Blood Pressure [Left] O2 Sat by Pulse 100 100 Oximetry 09/05/17 09/05/17 09/05/17 20:31 21:01 21:17 Temperature Pulse Rate 92 H 89 87 Respiratory Rate Blood Pressure 123/74 119/69 128/75 Blood Pressure [Left] O2 Sat by Pulse Oximetry 09/05/17 09/05/17 09/05/17 21:32 21:46 22:03 Temperature Pulse Rate 98 H 99 H 100 H Respiratory Rate Blood Pressure 112/73 109/59 130/58 Blood Pressure [Left] O2 Sat by Pulse Oximetry - Exam Breasts: deferred Cardiovascular: Regular rate Lungs: Normal air movement Abdomen: Present: normal appearance, soft Uterus: Present: normal FHR: category 2 (with pushing Returns to Cat 1 when stopped pushing) Uterine Contraction Monitor Mode: Internal Cervical Dilatation: 10 (Caput) Cervical Effacement Percentage: 100 station: -1 Uterine Contraction Pattern: Regular Uterine Tone Measurement Phase: Resting Uterine Contraction Intensity: Moderate Extremities: normal Deep Tendon Reflex Grade: Normal +2 - Labs Labs: Abnormal Labs 09/05/17 12:20 MCHC 35 H Laboratory Results - last 24 hr 09/05/17 09/05/17 09/05/17 12:20 12:20 12:20 WBC 10.2 RBC 4.08 Hgb 11.4 Hct 33.0 MCV 81 MCH 28 MCHC 35 H RDW 14.6 Plt Count 264 RPR Nonreactive Blood Type A POSITIVE Antibody Screen Negative
[2017-09-05] MEDS ORDERED: XYLOCAINE MPF 2% ONE ×4 (23:07)
[2017-09-05] MEDS ORDERED: TORADOL ONE (23:08)
[2017-09-05] MEDS ORDERED: METHERGINE IM ONE (23:14)
[2017-09-05] MEDS ORDERED: VERSED ONE (23:22)
--- NOTE | 2017-09-06 00:06 | Operative Report ---
Operative Report Operative Report: Date of procedure: 09/05/2017 Pre-operative diagnosis: Intrauterine at 40 weeks, failure of dilatation and descent and prolonged ruptured membranes Post-operative diagnosis: Same Procedure name(s): Primary low transverse section Surgeon: Bobo Mcclure MD Electrical Service Technician: Aparna Smith, certified nurse supply chain business analyst Anesthesia: Epidural EBL: 700 mL Complications: Uterine atony Findings: Normal uterus tubes and ovaries bilaterally. Male weight 7 lbs. 7 oz. Apgars 8 at 1 minute and 9 at 5 minutes Specimen(s): None Procedure: The patient was brought to the operating room. Her epidural was dosed. She was then placed in left lateral tilt. Prepped and draped in the usual sterile manner. After testing for adequate anesthesia level, a Pfannenstiel incision was made. This incision was taken down to the fascia. The fascia was then nicked in the midline. This incision was extended out laterally with Justin scissors. The fascia was then sharply and bluntly from the underlying rectus muscles. The rectus muscles were bluntly and sharply . The peritoneum was then entered with the electron microprobe operator's fingers. This incision was spread vertically with care not to damage the bladder below. The bladder flap was then formed sharply and bluntly with Metzenbaum scissors. Bladder blade was placed. A transverse incision was made in lower uterine segment. This incision was extended laterally with the operators fingers. The amniotic sac was then entered bluntly with the electron microprobe operator' s fingers. The was delivered from the vertex position. Bulb suction on the mother's abdomen. Cord was double clamped and cut. The infant was then passed to the nursery personnel who were in attendance. The above scores were given by the nursery personnel. The placenta was then bluntly removed. The uterus was then externalized and wiped clean the remaining products. The uterus was found to be boggy. Methergine 0.2 mg were given IM The uterine incision was closed in layers. The first incision was closed in a locking manner using 0 Vicryl. This was followed by imbricating stitch also with 0 Vicryl. This closure was hemostatic. The bladder flap was copiously irrigated and found to be hemostatic. The pelvis was copiously irrigated and found to be hemostatic. The uterus was then placed back to the patient's abdomen. The retractors were removed. The rectus muscles were inspected and found to be hemostatic. The fascia was then closed in a running manner using 0 Vicryl. This incision was hemostatic irrigation Bovie. The skin was reapproximated with 4-0 Vicryl subcuticularly. The patient tolerated procedure well. Her urine was clear. The infant was admitted to the well baby nursery. The patient was accompanied to recovery room in good condition. Instrument count correct times 3.
[2017-09-06] MEDS ORDERED: DILAUDID IV PRN (00:23)
[2017-09-06] MEDS ORDERED: NARCAN 0.4 MG/1 ML IV PRN (03:39)
[2017-09-06] MEDS ORDERED: TORADOL IV PRN (03:39)
[2017-09-06] MEDS ORDERED: MYLICON PO PRN (03:39)
[2017-09-06] MEDS ORDERED: LANSINOH TP PRN (03:39)
[2017-09-06] MEDS ORDERED: D5LR 1,000 ML IV SCH (03:39)
[2017-09-06] MEDS ORDERED: TUCKS PAD TP PRN (03:39)
[2017-09-06] MEDS ORDERED: SODIUM CHLORIDE FLUSH SYRINGE 10 ML IV NR (03:39)
[2017-09-06] MEDS ORDERED: PITOCin/NS 20 UNIT/1000ML DRIP 20 UNITS/1,000 ML BAG IV SCH (03:39)
[2017-09-06] MEDS ORDERED: MILK OF MAGNESIA PO PRN (03:39)
--- NOTE | 2017-09-06 07:05 | Progress Note ---
Assessment and Plan - Patient Problems (1) delivery delivered Onset Date: ~09/06/17 Current Visit: Yes Status: Acute Plan to address problem: Pt in good spirits NO c/o voiced VSS FF below umb Lochia small Dressing D&I H&H pending Doing well s/p section P: continue pathway Advance diet and activity as tolerated. Subjective - Subjective Date of service: 09/06/17 (pt resting ) Principal diagnosis: Day # 1 s/p Section Patient reports: voiding normally (clear yellow urine BSB), pain well controlled : doing well Objective - Vital Signs Latest vital signs: Vital Signs Temp Pulse Resp BP BP Pulse Ox 09/06/17 04:20 98.1 F 90 20 110/66 09/06/17 01:45 98.0 F 99 H 20 130/70 09/06/17 01:00 98.2 F 102 H 20 128/66 99 09/06/17 00:45 98.2 F 110 H 17 115/75 98 09/06/17 00:28 97.8 F 107 H 18 111/62 100 09/06/17 00:15 97.8 F 102 H 18 110/66 96 09/06/17 00:10 98.1 F 90 20 115/75 98 09/05/17 23:23 68 18 09/05/17 22:41 70 79 L 09/05/17 22:32 107 H 122/71 09/05/17 22:16 88 130/61 09/05/17 22:03 100 H 130/58 09/05/17 21:46 99 H 109/59 09/05/17 21:32 98 H 112/73 09/05/17 21:17 87 128/75 09/05/17 21:01 89 119/69 09/05/17 20:31 92 H 123/74 09/05/17 20:18 94 H 129/68 09/05/17 20:13 80 100 09/05/17 20:08 77 100 09/05/17 20:03 95 H 88 09/05/17 20:02 82 127/72 09/05/17 19:58 94 H 99 09/05/17 19:57 91 H 95 09/05/17 19:52 81 100 09/05/17 19:48 85 136/95 94 09/05/17 19:47 88 97 18 19:42 78 99 18 19:41 79 95 18 19:38 83 100 18 19:35 88 91 18 19:32 77 99 18 19:31 79 128/77 18 19:29 76 122/71 18 19:27 76 99 18 19:26 97.6 F 76 20 128/77 18 19:25 80 96 18 19:22 87 63 L 18 19:19 84 92 18 19:17 89 124/78 89 18 19:13 97 H 89 09/05/17 19:07 94 H 94 09/05/17 19:04 95 H 95 18 19:03 116/81 18 19:02 81 98 18 18:58 82 95 09/05/17 18:57 84 100 09/05/17 18:52 86 96 18 18:47 86 121/83 94 18 18:42 88 100 18 18:40 90 88 18 18:37 90 98 09/05/17 18:34 102 H 96 18 18:33 82 128/76 18 18:32 91 H 100 18 18:28 99 H 84 18 18:27 93 H 96 18 18:22 80 98 18 18:17 88 121/72 100 18 18:16 95 H 87 18 18:12 90 100 18 18:07 86 76 L 18 18:02 104 H 92 18 18:01 84 108/65 18 17:57 80 100 18 17:52 83 100 18 17:48 94 H 97/55 18 17:47 71 84 18 17:32 92 H 123/58 18 17:17 82 L 18 17:16 85 106/52 18 17:10 82 L 07/29/18 17:04 90 09/05/17 17:02 98.1 F 16 09/05/17 17:01 92 H 105/59 09/05/17 16:59 78 L 09/05/17 16:58 77 80 L 09/05/17 16:54 93 09/05/17 16:47 88 104/59 18 16:36 89 62 L 09/05/17 16:33 108 H 101/57 09/05/17 16:31 95 H 111/69 100 09/05/17 16:26 88 99 09/05/17 16:21 92 H 99 09/05/17 16:16 92 H 109/68 99 09/05/17 16:11 86 100 09/05/17 16:06 88 96 09/05/17 16:04 88 129/62 09/05/17 16:01 110 H 129/70 09/05/17 16:00 70 78 L 09/05/17 15:55 92 H 71 L 09/05/17 15:01 92 09/05/17 14:56 87 09/05/17 14:48 70 82 L 09/05/17 14:46 88 96 09/05/17 14:41 89 95 09/05/17 14:36 87 98 09/05/17 14:33 88 96 09/05/17 14:31 96 H 98 09/05/17 14:26 83 96 09/05/17 14:21 79 97 09/05/17 14:16 89 99 09/05/17 14:11 101 H 97 09/05/17 14:06 85 98 09/05/17 14:05 81 96 09/05/17 14:01 93 H 97 09/05/17 13:56 92 H 99 09/05/17 13:51 81 98 18 13:50 85 95 18 13:46 94 H 94 18 13:43 93 H 96 09/05/17 13:41 87 97 18 13:38 97 H 96 18 13:36 90 96 18 13:32 99 H 96 18 13:31 86 98 18 13:26 92 H 94 18 13:25 86 96 18 13:21 92 H 96 07/29/18 13:16 95 H 94 09/05/17 13:11 82 94 09/05/17 13:06 97 H 97 09/05/17 13:01 83 96 09/05/17 13:00 91 H 128/56 94 09/05/17 12:59 97.8 F 18 09/05/17 12:56 101 H 97 09/05/17 12:52 98 H 96 09/05/17 12:51 85 96 09/05/17 12:21 82 130/85 09/05/17 11:27 100 H 112/82 09/05/17 11:23 98.5 F 18 Intake and Output 09/05/17 09/06/17 09/06/17 22:59 06:59 14:59 Intake Total 436.6 240 Output Total 400 2600 Balance 36.6 -2360 Intake: IV 76.6 AMPICILLIN/NS 1 GM/50 ML 50 1 gm In 50 ml @ 100 mls/ hr IV Q4HR [facility] Rx#: [id number] PITOCin/NS 30 UNIT/500ML 26.6 30 units In 500 ml @ 4 mls/hr IV TITR JAMES Rx#: [id number] Oral 360 240 Output: Urine 400 2600 Uretheral (Hernandez) 1800 Void 400 800 Other: Total, Intake Amount 360 240 Total, Output Amount 400 800 Voiding Method Indwelling Catheter - Exam Breasts: Present: normal Cardiovascular: Present: Regular rate Lungs: Present: Normal air movement Abdomen: Present: normal appearance, soft Uterus: Present: normal, fundal height below umbilicus Extremities: Present: normal Deep Tendon Reflex Grade: Normal +2 Incision: Present: normal, dry, intact, dressed - Labs Labs: Abnormal lab results 09/05/17 Range/Units 12:20 MCHC 35 H (30-34) %
[2017-09-06] MEDS: ANCEF/NS 1 GM/50 ML 1 GM/50 ML BAG IV SCH ×2 (07:54→16:40)
[2017-09-06 12:33] LABS: Hematocrit 28.4 % (30.3-42.9); Hemoglobin 9.4 gm/dl (10.1-14.3)
[2017-09-06] MEDS: NORCO 5/325 PO PRN ×2 (19:31→23:53)
[2017-09-07] MEDS: NORCO 5/325 PO PRN ×2 (05:49→18:10)
--- NOTE | 2017-09-07 07:42 | Progress Note ---
Assessment and Plan Patient doing well, no complaints. without concern. VSSAF, H&H stable, incision D&I, lochia scant. no flatus at this time, rn will start interventions and advance diet as tolerated. continue postop pathway and anticipate d/c home tomorrow - Patient Problems (1) delivery delivered Onset Date: ~09/06/17 Current Visit: Yes Status: Acute Subjective - Subjective Date of service: 09/07/17 Principal diagnosis: Day # 2 s/p Section Interval history: EDC Confirmation: 09/04/2017 Past History : 1 Past Medical History: Negative Past Medical History Past Surgical History: Reviewed history and no changes required: ruptured appendix age 9 with appendectomy and subsequent infection Past Medical History Anesthesia Complications: negative Anemia: negative Autoimmune Disorder: negative Bleeding Disorder: negative Blood Transfusions: negative Breast Disease: negative Diabetes: negative Heart Disease: negative Hypertension: negative Hepatitis/Liver Disease: negative Kidney Disease/UTI: negative Neurologic/Epilepsy/Migraines: negative Phlebitis/Varicosities: negative Psychiatric: negative Pulmonary Disease/Asthma: negative Thyroid Disease: negative Hospitalizations: negative Surgery (Non-glass blower): ruptured appendix age 9 with appendectomy and subsequent infection Abnormal PAP: negative KISHA Exposure: negative Infertility: negative Uterine Anomaly: negative Uterine Surgery (not C/S): negative Other Gynecologic Problems: negative Infection History Hx of STD: none HIV Risk Eval: low risk Hepatitis B Risk Eval: low risk Personal hx. of genital herpes: no Partner hx. of genital herpes: no Varicella/Chicken Pox Status: Unknown TB Risk: no Genetic History Congenital Heart Defect: Mom: no Dad: no Sapphire Disease: Mom: no Dad: no Thalassemia Mom: no Dad: no Neural Tube Defect Mom: no Dad: no Down's Syndrome Mom: no Dad: no Twan-Sachs Mom: no Dad: no Sickle Cell Disease/Trait Mom: no Dad: no Hemophilia Mom: no Dad: no Muscular Dystrophy Mom: no Dad: no Cystic Fibrosis Mom: no Dad: no [place] Chorea Mom: no Dad: no Mental Retardation Mom: no Dad: no Fragile X Mom: no Dad: no Other Genetic/Chromosomal Disorder Mom: no Dad: no Child w/other defect Mom: no Dad: no Enviromental Exposures Xray Exposure: no Medication, drug, or alcohol use since LMP: no Chemical/Other Exposure: no Exposure to Cat Liter: no Hx of Parvovirus (Fifth Disease): no Active Medications (reviewed today): None Current Allergies (reviewed today): No known allergies Patient reports: appetite normal, voiding normally, pain well controlled, ambulating normally, no dizzy ambulation, no flatus, no nauseated [place]: doing well, nursing well Objective - Vital Signs Latest vital signs: Vital Signs Temp Pulse Resp BP Pulse Ox 09/07/17 05:49 20 09/06/17 23:53 20 09/06/17 19:31 18 09/06/17 14:49 98.2 F 92 H 16 99/64 98 09/06/17 08:40 98.3 F 89 16 113/56 95 Intake and Output 09/06/17 09/06/17 09/07/17 15:59 23:59 07:59 Intake Total 50 50 Output Total 1800 2800 Balance -1750 -2750 Intake: IV 50 50 ANCEF/NS 1 GM/50 ML 1 gm 50 50 In 50 ml @ 100 mls/hr IV Q8H [facility] Rx#:[id number] Output: Urine 1800 2800 Void 1800 2800 Other: Total, Output Amount 1800 600 # Voids Void 1 - Exam Breasts: Present: normal, Cardiovascular: Present: Regular rate Lungs: Present: Clear to auscultation, Normal air movement Abdomen: Present: normal appearance, soft Vulva: both: normal Uterus: Present: normal, firm, fundal height at umbilicus Extremities: Present: normal Deep Tendon Reflex Grade: Normal +2 Incision: Present: normal, dry, intact - Labs Labs: Abnormal lab results 09/06/17 Range/Units 12:10 Hgb 9.4 L (10.1-14.3) gm/dl Hct 28.4 L (30.3-42.9) %
[2017-09-07] MEDS: PRENATAL VITAMIN PO SCH (10:26)
[2017-09-07] MEDS: FEOSOL PO SCH (10:26)
[2017-09-07] MEDS ORDERED: MOTRIN PO PRN (19:21)
--- NOTE | 2017-09-08 07:11 | Discharge Summary ---
Providers - Providers Date of Admission: 09/05/17 11:06 Date of discharge: 09/08/17 (resting No c/o voiced) Attending physician: ALEJANDRA GRIMES 09/06/17 03:39 Consult to County Supervisor [CONS] Routine Reason For Exam: Primary care physician: ALEJANDRA GRIMES Hospitalization Reason for admission: active labor Delivery: Procedure: primary low transverse Episiotomy: none Laceration: none Incision: normal, dry, intact Other procedures: none complications: none Discharge diagnosis: IUP at term delivered baby: male Hospital course: uncomplicated section arrest of descent OP Pt resting quietly No c/o voiced VSS FF below umb Lochia scant Incision D&I Asymptomatic anemia. Doing well s/p c/s P: d/c today with instructions RX provided RTO 1 week postop care Condition at discharge: Good Disposition: DC-01 TO HOME OR SELFCARE - Discharge Diagnoses (1) delivery delivered Status: Acute Comment: RTO 1 week postop care Plan - Discharge Medications Prescriptions: Ferrous Sulfate [Feosol 325 MG tab] 325 mg PO BID #60 tablet Ibuprofen [Motrin 800 MG tab] 800 mg PO Q6H PRN #30 tablet PRN Reason: Pain Lidocain2.5%/Prilocai2.5% [Emla] 5 gm TP PRN #1 tube oxyCODONE /ACETAMINOPHEN [Percocet 5/325 mg] 1 - 2 tab PO Q4H PRN #30 tablet PRN Reason: Pain, Moderate - Provider Discharge Summary Activity: routine, no sex for 6 weeks, no heavy lifting 4 weeks, no strenuous exercise Diet: routine Instructions: routine Additional instructions: [] Smoking cessation referral if applicable(refer to patient education folder for contact #) [] Refer to [facility] Booklet Call your doctor immediately for: * Fever > 100.5 * Heavy vaginal bleeding ( >1 pad per hour) * Severe persistent headache * Shortness of breath * Reddened, hot, painful area to leg or breast * Drainage or odor from incision. * Keep incision clean and dry at all times and follow doctor's instructions regarding bathing/showering - Follow up plan Follow up: ALEJANDRA GRIMES MD [Primary Care Provider] - 7 Days (Congratulations! Please call [phone] to schedule your postoperative visit and circumcision in 1 week. Bring EMLA cream with you to your son's visit. Do NOT use at home. Take medications as prescribed. Call with any concerns.)
--- NOTE | 2017-09-08 07:48 | Query-Anemia ---
[place] Date:____09/08/17 Brand Advisor/CDS:___breezy Phone#:___[phone] Exercise your independent professional judgment when responding to this query. Questions asked do not imply a particular answer is desired or expected. We greatly appreciate your clarification on this issue. Clinical Documentation States: 27y/o @ 40+1 weeks, arrived with c/o SROM @ 0930. GBS +. Admission orders in EMR. Epidural PRN. Taken from operative report () on 09/05/17 Pre-operative diagnosis: Intrauterine at 40 weeks, failure of dilatation and descent and prolonged ruptured membranes Post-operative diagnosis: Same Procedure name(s): Primary low transverse section EBL: 700 mL Clinical Findings Show: 09/05/17 09/06/17 Hb 11.4 9.4 Hct 33 28.4 Etiology: [ x] Anemia due to acute blood loss [ ] Anemia due to chronic blood loss [ ] Anemia secondary to ESRD [ ] Anemia secondary to neoplastic disease [ ] Iron deficiency anemia due to malabsorption [ ] GI Bleed from: [ ] Anemia of chronic disease ,Other: [ ] Precipitous Drop in Hemoglobin [ ] Precipitous Drop in Hematocrit [ ] Other: [ ] Unable to determine [ ] Comment/Explanation: Present on Admission: [ ] Yes (Y) [ ] Clinically undeterminable (W) [x ] No (N) Please also document response in your Progress Notes and/or Discharge Summary and indicate if the condition was present on admission. MTDD
[2017-09-08] MEDS: PRENATAL VITAMIN PO SCH (10:36)
[2017-09-08] MEDS: FEOSOL PO SCH (10:36)
[2017-09-08 15:17] VITALS: BP 114/69
== END 2017-09-08 13:18 | disposition home or self-care (01) | DRG 765 ==
LOC: TRG 11:05 → LD 11:06 → OB 09-06 02:51
PROVIDERS: ADMIT Obstetrics & Gynecology; ATTEND Obstetrics & Gynecology
PROC: 10D00Z1 Extraction of Products of Conception, Low, Open Approach (ICD-10-PCS; principal; 2017-09-05)
DX: O64.8XX0 Obstructed labor due to other malposition and malpresentation, not applicable or unspecified (principal); D62 Acute posthemorrhagic anemia; Z3A.40 40 weeks gestation of pregnancy; Z37.0 Single live birth; O99.824 Streptococcus B carrier state complicating childbirth; O62.0 Primary inadequate contractions; O99.02 Anemia complicating childbirth
CPT/HCPCS: 36415; 85014; 85018; 85027; 86592; 86850; 86900; 86901; 99211; A6250; G0463; J0290; J0690; J1170; J1885; J2210; J2250; J2590; J2765; J7120; J7121